=== PATIENT | male | born 2000 | race Caucasian/White ===

== ENCOUNTER 2023-12-05 09:54 | Outpatient (AMB) | payer BC, SELFPAY ==
[2023-12-05 10:01] VITALS: BP 130/78; PULSE 83; O2SAT 98; BMI 29.1
--- NOTE | 2023-12-05 10:01 | MHC.PC.OV ---
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 Dr Malik Last office visit/CPE: > 1 yr Acute issue(s): Groin rash. PMHx: Mononucleosus 2022. SurgHx: [place] teeth FHx: Brother: Asthma. SocHx: Nonsmoker. EtOH: social 2-4 dr a couple times a month MJ Daily. No other drugs PFSH Medical History (Updated 12/05/23 @ 10:31 by Duglas Clark) Chlamydia Surgical History (Updated 12/05/23 @ 10:11 by Dinora Catalan CMA) [place] teeth extracted Family History (Updated 12/05/23 @ 10:18 by Dinora Catalan CMA) Brother Asthma Social History (Updated 12/05/23 @ 10:15 by Dinora Catalan CMA) Household Members: None Both parents involved: No Caregiver staying overnight: No Housing: Apartment Are you a primary customer care representative to a significant other at home: No Do you presently have visiting nurse or other home services: No 75 years or older and lives alone: No Alcohol intake: current Alcohol intake frequency: holidays/special occasions only Alcohol type: other Patient Tobacco Use Status: Never used Tobacco e-Cigarette/Vaping Use: Never Used Use of substances other than those prescribed or required for medical reasons: No Have you been hit, kicked, punched, or otherwise hurt by someone within the past year? 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 1. Little interest or pleasure in doing things: not at all 2. Feeling down, depressed, or hopeless: not at all 3. Trouble falling or staying asleep, or sleeping too much: not at all 4. Feeling tired or having little energy: not at all 5. Poor appetite or overeating: not at all 6. Feeling bad about yourself - or that you are a failure or have let yourself or your family down: not at all 7. Trouble concentrating on things, such as reading the newspaper or watching television: not at all 8. Moving or speaking so slowly that other people could have noticed. Or the opposite - being so fidgety or restless that you have been moving around a lot more than usual: not at all 9. Thoughts that you would be better off or of hurting yourself in some way: not at all Total score: 0 Depression Screening Interpretation: Negative Depression Screening Done: Yes 48026 - PHQ-9 Billing: Yes Source: Developed by Drs. Handy Sherman, Alix Madrid, Bethel Nichols and colleagues, with an educational juan manuel from [employer]. Thrive Questionnaire Date Thrive assessed: 12/05/23 I am a: Patient What is your living situation today?: I have a steady place to live Within the past 12 months, did the food you bought not last and you didn't have the money to get more?: Never true Within the past 12 months, did you worry whether your food would run out before you got money to buy more?: Never true Do you have trouble paying for medicines?: No Do you have trouble getting transportation to medical appointments?: No Do you have trouble paying your heating and electricity bill?: No Do you have trouble taking care of your child, family member or friend?: No Do you have trouble with day-to-day activities such as bathing, preparing meals, shopping, managing finances, etc.?: No Are you currently unemployed and looking for a job?: No Are you interested in more education?: No THRIVE Score: 0 MADYSON-7 AMB Questionnaire MADYSON-7 Date MADYSON - 7 assessed: 12/05/23 Feeling nervous, anxious, or on edge: 0 = Not at all Not being able to stop or control worryin = Not at all Worrying too much about different things: 0 = Not at all Trouble relaxin = Not at all Being so restless that it is hard to sit still: 0 = Not at all Becoming easily annoyed or irritable: 0 = Not at all Feeling afraid as if something awful might happen: 0 = Not at all Total MADYSON-7 score (0-4 normal; 5-9 mild; 10-14 moderate; 15-21 severe): 0 Source: Developed by Drs. Handy Sherman, Alix Madrid, Bethel Nichols and colleagues, with an educational juan manuel from [employer]. MADYSON-7 Assessment Billing MADYSON-7 Assessment Tool: MADYSON-7 Assessment 59297 Review of Systems Const Denies chills, Denies fatigue, Denies fever(s), Denies headache(s) and Denies weakness ENT Denies dizziness and Denies headache(s) Card Denies chest pain, Denies lightheadedness, Denies dyspnea and Denies other (Palpitations) Resp Denies cough, Denies dyspnea, Denies wheezing and Denies other ( shortness of breath) Musc Denies numbness and Denies tingling Skin/Breast Reports rash Neuro Denies dizziness, Denies headache(s), Denies numbness, Denies tingling, Denies paresthesias and Denies weakness Psych Denies anxiety and Denies depression Endo Denies fatigue Aller/Immun Denies wheezing Physical exam (Primary Care) Vital Signs: Last Vital Signs Pulse 83 12/05/23 10:01 BP 130/78 12/05/23 10:01 Pulse Ox 98 12/05/23 10:01 Oxygen Delivery Method Room Air 12/05/23 10:01 BMI result Body Mass Index 29.1 Tobacco/Smoking Status: Tobacco use Status Tobacco use date assessed 12/05/23 12/05/23 10:18 Patient Tobacco Use Status Never used Tobacco 12/05/23 10:18 Tobacco use type 12/05/23 10:18 e-Cigarette/Vaping Use Never Used 12/05/23 10:18 PHQ-9: PHQ-9 Score PHQ-9: Total score 0 12/05/23 10:18 Depression Screening Interpretation: Negative Thrive Assessment: Date of Thrive Assessment Date Thrive assessed 12/05/23 12/05/23 10:18 Const General: no acute distress and well developed Nutritional Appearance: well nourished Orientation/consciousness: patient oriented x3 HENMT Head: Yes normocephalic and Yes atraumatic Eyes General: appearance normal, both eyes and all related structures Pupils: Equal, round and reactive pupils present EOM: EOMs intact bilaterally Resp Effort & Inspection: normal respiratory effort Auscultation: clear to auscultation bilaterally Cardio Rate: regular rate Rhythm: regular rhythm Heart sounds: S1 normal heart sound present, S2 normal heart sound present, no gallops, no murmurs and no rubs Neuro General: patient oriented x3 and gait normal Cranial nerves: Yes Equal, round and reactive pupils present Psych Affect: normal affect Assessment and Plan Assessment & Plan (1) Rash: Code(s): R21 - Rash and other nonspecific skin eruption Plan: Rash?in?bilateral?groin?with?satellite?lesions. ?Small?annular?spots?with?raised?leading?edge?and?mild?scale. Most?likely?yeast/fungal?infection. Start?clotrimazole?cream Avoid?excess?moisture Call?or?return?to?office?if?not?improving?or?if?worsens (2) Laboratory exam ordered as part of routine general medical examination: Code(s): Z00.00 - Encounter for general adult medical examination without abnormal findings Plan: Check?labs Orders: Orders Comprehensive [place]. Panel Fast Today Z00.00 - Encounter for general adult medical examination without abnormal findings TSH reflex Free T4 Today Z00.00 - Encounter for general adult medical examination without abnormal findings UA and rflx microscopic Today Z00.00 - Encounter for general adult medical examination without abnormal findings Syphilis Screen Today Z11.3 - Encounter for screening for infections with a predominantly sexual mode of transmission Lipid Panel Today Z00.00 - Encounter for general adult medical examination without abnormal findings Microalbumin, Random (w Creat) Today I10 - Essential (primary) hypertension CT NG by PCR Today Z11.3 - Encounter for screening for infections with a predominantly sexual mode of transmission HIV Ab/Ag Today Z11.3 - Encounter for screening for infections with a predominantly sexual mode of transmission Hepatitis B,C Profile Today Z11.3 - Encounter for screening for infections with a predominantly sexual mode of transmission Coding Level of Care Code New Pt Level 3 (04078) Diagnoses Rash R21 Laboratory exam ordered as part of routine general medical examination Z00.00 Additional Codes MADYSON-7 Assessment Billing - MADYSON-7 Assessment Tool: MADYSON-7 Assessment [id number] ([id number])
== END 2023-12-05 10:58 | disposition home or self-care (01) ==
PROVIDERS: PCP Family Medicine; Visit Provider Family Medicine
DX: R21 Rash and other nonspecific skin eruption (principal); Z00.00 Encounter for general adult medical examination without abnormal findings
CPT/HCPCS: 99203

== ENCOUNTER 2024-02-10 07:30 | Outpatient (REF) | payer BC, SELFPAY ==
[2024-02-10 11:24] LABS: Appearance Urine Clear; Color Urine Yellow; Glucose Urine UA Negative (Negative); Leukocyte Esterase Urine Negative (Negative); Nitrite Urine Negative (Negative); Urine Blood Negative (Negative); Urine Ketones Negative (Negative); Urine Protein Negative (Neg-Trace)
[2024-02-10 12:01] LABS: Alanine Aminotransferase 22 U/L (0-40); Albumin Level 4.7 g/dL (3.5-5.0); Alkaline Phosphatase 102 U/L (39-117); Anion Gap 12 (12-20); Aspartate Amino Transferase 21 U/L (5-37); Bilirubin Total 0.7 mg/dL (0.0-1.0); Blood Urea Nitrogen 12 mg/dL (9-16); Calcium 9.6 mg/dL (8.4-10.2); Carbon Dioxide 27 mmol/L (22-29); Chloride 107 mmol/L (96-108); Estimated Glomerular Filt Rate > 60; Glucose Fasting 85 mg/dL (60-99); Potassium 3.6 mmol/L (3.3-5.1); Sodium 142 mmol/L (135-145); Total Protein 7.6 g/dL (6.5-8.0)
[2024-02-10 12:16] LABS: HBS Num1 4.09 mIU/mL (0-7.99); HBsAGNum1 0.34 S/CO (0.00-0.99); HIV AB/AG Nonreactive (Nonreactive); HIV Num 1 0.05 S/CO (0.00-0.99); Hepatitis B Core Antibody Nonreactive (Nonreactive); Hepatitis B Surface Antigen Negative (Negative); ~HepC Num1 0.14 S/CO (0.00-0.79); ~Hepatitis B Surface Antibody NONREACTIVE (Nonreactive); ~Hepatitis C Antibody Nonreactive (Nonreactive)
[2024-02-10 12:17] LABS: TSH reflex Free T4 0.94 uIU/mL (0.32-4.0)
[2024-02-10 12:17] LABS: Syphilis Screen Nonreactive (Nonreactive)
[2024-02-10 12:24] LABS: Creatinine Urine 217.23 mg/dL; Microalbum/Creatinine Ratio Ur 3.6 ug/mg cr (<30)
== END 2024-02-10 07:31 | disposition home or self-care (01) ==
LOC: HO.WFDLDS 07:30
PROVIDERS: Visit Provider Family Medicine
DX: Z00.00 Encounter for general adult medical examination without abnormal findings (principal); Z11.3 Encounter for screening for infections with a predominantly sexual mode of transmission; I10 Essential (primary) hypertension
CPT/HCPCS: 36415; 80053; 81003; 82043; 82570; 84443; 86704; 86706; 86780; 86803; 87340; 87389

== ENCOUNTER 2024-02-19 12:52 | Outpatient (AMB) | payer BC, SELFPAY ==
[2024-02-19 13:02] VITALS: BP 112/68; PULSE 97; O2SAT 99; BMI 28.3
--- NOTE | 2024-02-19 13:02 | MHC.PC.OV ---
Vital Signs 02/19/24 13:02 Height 5 ft 10 in Weight 197 lb 4 oz BMI 28.3 BP 112/68 Blood Pressure Location Lt brachial Position Sitting Pulse 97 Pulse Source Pulse Oximeter Pulse Oximetry (%) 99 Oxygen Delivery Method Room Air Intake Visit Reasons: CPE with f/u labs and health maint. 30 mins Intake Note: Patient is here today for his physical today. Allergies amoxicillin [From Augmentin] Allergy (Unknown, Unverified 02/19/24 13:03) Unknown clavulanic acid [From Augmentin] Allergy (Unknown, Unverified 02/19/24 13:03) Unknown Medication List - Last Reconciled 02/19/24 by Michael Oliva MD bupropion HCl 75 mg PO BID 30 days hydroxyzine HCl 25 mg PO QID PRN Tobacco use date assessed: 12/05/23 Dental Screening Dental Screen Date: 12/05/23 HPI CPE with f/u labs and health maint. 30 mins HPI Details 23 y/o male presents for a CPE with f/u labs and health maintenance. Labs were drawn 02/10/24. Reviewed labs with pt. Reviewed labs with pt. Pt reports ongoing anxiety. He has been taking hydroxyzine for relief. [facility] Medical History (Updated 02/19/24 @ 13:39 by Michael Oliva MD) Chlamydia Surgical History (Updated 12/05/23 @ 10:11 by Dinora Catalan CMA) [place] teeth extracted Family History (Updated 12/05/23 @ 10:18 by Dinora Catalan CMA) Brother Asthma Social History (Updated 12/05/23 @ 10:15 by Dinora Catalan CMA) Household Members: None Housing: Apartment Are you a primary day care supervisor to a significant other at home: No Do you presently have visiting nurse or other home services: No Alcohol intake: current Alcohol intake frequency: holidays/special occasions only Alcohol type: other Patient Tobacco Use Status: Never used Tobacco e-Cigarette/Vaping Use: Never Used Special neelam needs: No service: No Current occupational status: employed 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 1. Little interest or pleasure in doing things: not at all 2. Feeling down, depressed, or hopeless: not at all 3. Trouble falling or staying asleep, or sleeping too much: not at all 4. Feeling tired or having little energy: not at all 5. Poor appetite or overeating: not at all 6. Feeling bad about yourself - or that you are a failure or have let yourself or your family down: not at all 7. Trouble concentrating on things, such as reading the newspaper or watching television: not at all 8. Moving or speaking so slowly that other people could have noticed. Or the opposite - being so fidgety or restless that you have been moving around a lot more than usual: not at all 9. Thoughts that you would be better off or of hurting yourself in some way: not at all Total score: 0 Depression Screening Interpretation: Negative Depression Screening Done: Yes 32418 - PHQ-9 Billing: Yes Source: Developed by Drs. Handy Sherman, Alxi Madrid, Bethel Nichols and colleagues, with an educational juan manuel from [employer]. Thrive Questionnaire Date Thrive assessed: 12/05/23 MADYSON-7 AMB Questionnaire MADYSON-7 Date MADYSON - 7 assessed: 02/19/24 Feeling nervous, anxious, or on edge: 1 = Several days Not being able to stop or control worryin = Several days Worrying too much about different things: 1 = Several days Trouble relaxin = Not at all Being so restless that it is hard to sit still: 0 = Not at all Becoming easily annoyed or irritable: 0 = Not at all Feeling afraid as if something awful might happen: 0 = Not at all Total MADYSON-7 score (0-4 normal; 5-9 mild; 10-14 moderate; 15-21 severe): 3 Source: Developed by Drs. Handy Sherman, Alix Madrid, Bethel Nichols and colleagues, with an educational juan manuel from [employer]. MADYSON-7 Assessment Billing MADYSON-7 Assessment Tool: MADYSON-7 Assessment 16610 Review of Systems Const Denies chills, Denies fatigue, Denies fever(s), Denies headache(s) and Denies weakness Eyes Denies change in vision ENT Denies dizziness, Denies headache(s), Denies hearing loss, Denies nasal congestion, Denies sinus pain, Denies sinus pressure and Denies sore throat Card Denies chest pain, Denies lightheadedness, Denies dyspnea and Denies other (palpitations) Resp Denies cough, Denies dyspnea and Denies wheezing GI Denies abdominal pain, Denies melena, Denies hematochezia, Denies change in bowel habits, Denies dyspepsia and Denies nausea Denies hematuria and Denies dysuria Musc Denies abnormal gait, Denies myalgias, Denies arthralgias, Denies numbness and Denies tingling Skin/Breast Denies rash, Denies unusual bruising and Denies wounds Neuro Denies abnormal gait, Denies dizziness, Denies headache(s), Denies memory loss, Denies numbness, Denies Sensory deficit (Neuro), Denies tingling and Denies weakness Psych Reports anxiety, Denies depression and Denies memory loss Endo Denies cold intolerance, Denies fatigue, Denies heat intolerance, Denies polydipsia and Denies polyuria [place]/Lymph Denies easy bleeding and Denies easy bruising Aller/Immun Denies wheezing Physical exam (Primary Care) Vital Signs: Last Vital Signs Pulse 97 02/19/24 13:02 BP 112/68 02/19/24 13:02 Pulse Ox 99 02/19/24 13:02 Oxygen Delivery Method Room Air 02/19/24 13:02 BMI result Body Mass Index 28.3 Tobacco/Smoking Status: Tobacco use Status Tobacco use date assessed 12/05/23 02/19/24 13:03 Patient Tobacco Use Status Never used Tobacco 02/19/24 13:03 Tobacco use type 12/05/23 10:39 e-Cigarette/Vaping Use Never Used 02/19/24 13:03 PHQ-9: PHQ-9 Score PHQ-9: Total score 0 02/19/24 13:22 Depression Screening Interpretation: Negative Thrive Assessment: Date of Thrive Assessment Date Thrive assessed 12/05/23 02/19/24 13:03 Const General: no acute distress, well developed, alert and awake Nutritional Appearance: well nourished Orientation/consciousness: patient oriented x3 HENMT Head: Yes normocephalic and Yes atraumatic Ears: hearing grossly normal bilaterally and TM's normal bilaterally General nose exam: Normal external nose present and Normal nares present Mouth: Normal oral and palatal mucosa present and moist mucous membranes Teeth and gingiva: dentition normal Throat: Yes posterior oropharynx normal Eyes General: appearance normal, both eyes and all related structures Pupils: Equal, round and reactive pupils present and Pupil accommodation reflex normal EOM: EOMs intact bilaterally Neck Neck: Yes normal visual inspection, Yes no lymphadenopathy and Yes trachea midline Thyroid: Thyroid normal Carotids: no bruits Lymphatic: no lymphadenopathy noted Chest Chest palpation & inspection: normal inspection of the chest Resp Effort & Inspection: normal respiratory effort Auscultation: clear to auscultation bilaterally Cardio Rate: regular rate Rhythm: regular rhythm Heart sounds: S1 normal heart sound present, S2 normal heart sound present, no gallops, no murmurs and no rubs Bruits: no abdominal aortic bruits and no carotid bruits GI Palpation (GI): No Abdominal aortic bruit present, Soft to palpation, nontender, No hepatosplenomegaly present and No Rebound tenderness present Auscultation: normal bowel sounds General: Yes no CVA tenderness Back/Spine/Pelvis Back: no CVA tenderness Cervical Spine: cervical ROM normal and No Cervical spine tenderness Thoracic/Lumbar Spine: thoraco-lumbar ROM normal, No pain with thoraco-lumbar ROM, No thoracic spinal tenderness and No lumbar spinal tenderness Skin Lesions: no lesions Rashes: no rashes Trauma: no lacerations or abrasions Wounds: no wounds Nails: normal Neuro General: patient oriented x3 Cranial nerves: Yes Equal, round and reactive pupils present Cognition (Neuro): normal cognition Gait exam (Neuro): Normal gait present Motor exam (neuro): 5/5 motor strength present throughout Sensory Exam: No Sensory deficit (Neuro) Deep tendon reflexes (DTR's): Right patellar reflex intensity grade: 2+ and Left patellar reflex intensity grade: 2+ Extrem General: Yes normal to inspection and No edema Psych Appearance: grossly normal Affect: normal affect Attitude: cooperative Thought process: Normal thought process present Assessment and Plan Assessment & Plan (1) Adult general medical exam: Code(s): Z00.00 - Encounter for general adult medical examination without abnormal findings Plan: 23-year-old?male?presents?for?complete?physical?exam (2) Anxiety: Code(s): F41.9 - Anxiety disorder, unspecified Plan: Recently,?recurrent?episodes?of?anxiety Continue?hydroxyzine?for?severe?symptoms. Will?trial?bupropion (3) Tachycardia: Code(s): R00.0 - Tachycardia, unspecified Plan: Tachycardia?at?ED, likely?secondary?to?anxiety Also?had?hypokalemia EKG?today: ?Normal?sinus?rhythm,?normal?axis,?normal?intervals,?no?hypertrophy,?no?ST-T-wave?changes.??Normal?EKG. Maintain?good?hydration?and?can?use?an?OTC?potassium?supplement.??Checking?labs. Treat?underlying?anxiety (4) Hypokalemia: Code(s): E87.6 - Hypokalemia Plan: Check?labs Hydrate?well?and?can?use?OTC?potassium?supplement (5) Screening for STD (sexually transmitted disease): Code(s): Z11.3 - Encounter for screening for infections with a predominantly sexual mode of transmission Plan: STD/STI?testing?is?negative Orders: Orders Lipid Panel Today Z00.00 - Encounter for general adult medical examination without abnormal findings LDL Cholesterol Direct Today Z00.00 - Encounter for general adult medical examination without abnormal findings AMB EKG-In Office Today R00.0 - Tachycardia, unspecified Comprehensive [place]. Panel Fast Today E87.6 - Hypokalemia, Z00.00 - Encounter for general adult medical examination without abnormal findings Medications: New bupropion HCl 75 mg PO BID 30 days 60 tabs 1RF Z00.00 - Encounter for general adult medical examination without abnormal findings Coding Level of Care Code Est Pt Level 3 (30732) Est Pt Prev Care 18-39y(99252) Diagnoses Adult general medical exam Z00.00 Anxiety F41.9 Tachycardia R00.0 Hypokalemia E87.6 Screening for STD (sexually transmitted disease) Z11.3 Additional Codes MADYSON-7 Assessment Billing - MADYSON-7 Assessment Tool: MADYSON-7 Assessment 56075 ([id number])
== END 2024-02-19 13:53 | disposition home or self-care (01) ==
PROVIDERS: PCP Family Medicine; Visit Provider Family Medicine
DX: Z00.00 Encounter for general adult medical examination without abnormal findings (principal); F41.9 Anxiety disorder, unspecified; R00.0 Tachycardia, unspecified; E87.6 Hypokalemia; Z11.3 Encounter for screening for infections with a predominantly sexual mode of transmission
CPT/HCPCS: 93000; 99213; 99395

== ENCOUNTER 2024-02-19 13:54 | Outpatient (REF) | payer BC, SELFPAY | END 2024-02-19 13:55 | disposition home or self-care (01) | LOC: HO.WFDLDS 13:54 | PROVIDERS: Visit Provider Family Medicine | DX: Z53.8 Procedure and treatment not carried out for other reasons (principal) | CPT/HCPCS: 36415 ==

== ENCOUNTER 2024-03-12 09:20 | Outpatient (AMB) | payer BC, SELFPAY ==
--- NOTE | 2024-03-12 09:27 | A.OFFPC_ITS ---
Vital Signs 03/12/24 09:37 Height 5 ft 10 in Weight 195 lb 6 oz BMI 28.0 BP 106/74 Blood Pressure Location Rt brachial Position Sitting Respiration 18 Pulse 80 Pulse Source Pulse Oximeter Temp 97.9 F Temp Source Oral Pulse Oximetry (%) 98 Oxygen Delivery Method Room Air Intake Visit Reasons: blurred vision/crosseyed/ shakiness Intake Note: per patient anxiety medication is giving him blurred vision crossed eye and shakiness in the morning. Allergies amoxicillin [From Augmentin] Allergy (Unknown, Verified 03/12/24 09:37) Unknown clavulanic acid [From Augmentin] Allergy (Unknown, Verified 03/12/24 09:37) Unknown Medication List - Last Reconciled 03/12/24 by Michael Oliva MD citalopram 20 mg PO DAILY 30 days hydroxyzine HCl 25 mg PO QID PRN Tobacco use date assessed: 12/05/23 Dental Screening Dental Screen Date: 12/05/23 HPI blurred vision/crosseyed/ shakiness HPI Details Pt presents to f/u anxiety. He reports anxiety meds has been causing him double vision/shakiness in the morning. Had started him on bupropion as he had been having difficulty with focus. [facility] Medical History (Updated 03/12/24 @ 10:38 by Duglas Clark) Chlamydia Surgical History (Updated 12/05/23 @ 10:11 by Dinora Catalan CMA) [place] teeth extracted Family History (Updated 12/05/23 @ 10:18 by Dinora Catalan CMA) Brother Asthma Social History (Updated 12/05/23 @ 10:15 by Dinora Catalan CMA) Household Members: None Housing: Apartment Are you a primary acute care assistant to a significant other at home: No Do you presently have visiting nurse or other home services: No Alcohol intake: current Alcohol intake frequency: holidays/special occasions only Alcohol type: other Patient Tobacco Use Status: Never used Tobacco e-Cigarette/Vaping Use: Never Used Special neelam needs: No service: No Current occupational status: employed 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 Handy Sherman, Alix Madrid, Bethel Nichols and colleagues, with an educational juan manuel from [employer]. Review of Systems Const Denies chills, Denies fatigue, Denies fever(s), Denies headache(s) and Denies weakness ENT Denies dizziness and Denies headache(s) Card Denies dyspnea Resp Denies cough, Denies dyspnea, Denies wheezing and Denies other (shortness of breath) Musc Denies numbness and Denies tingling Neuro Denies dizziness, Denies headache(s), Denies numbness, Denies tingling and Denies weakness Psych Reports anxiety and Denies depression Endo Denies fatigue Aller/Immun Denies wheezing Physical exam (Primary Care) Vital Signs: Last Vital Signs Temp 97.9 F 03/12/24 09:37 Pulse 80 03/12/24 09:37 Resp 18 03/12/24 09:37 BP 106/74 03/12/24 09:37 Pulse Ox 98 03/12/24 09:37 Oxygen Delivery Method Room Air 03/12/24 09:37 BMI result Body Mass Index 28.0 Tobacco/Smoking Status: Tobacco use Status Tobacco use date assessed 12/05/23 03/12/24 09:28 Patient Tobacco Use Status Never used Tobacco 03/12/24 09:28 Tobacco use type 12/05/23 10:39 e-Cigarette/Vaping Use Never Used 03/12/24 09:28 Thrive Assessment: Date of Thrive Assessment Date Thrive assessed 12/05/23 03/12/24 09:28 Const General: well developed; No acute distress Nutritional Appearance: well nourished Orientation/consciousness: patient oriented x3 [facility]: Yes normocephalic and Yes atraumatic Eyes Other: R eye weakness General: appearance normal, both eyes and all related structures Pupils: Equal, round and reactive pupils present EOM: EOMs intact bilaterally Resp Effort & Inspection: normal respiratory effort Neuro General: patient oriented x3 and gait normal Cranial nerves: Yes Equal, round and reactive pupils present Psych Affect: normal affect Assessment and Plan Assessment & Plan (1) Anxiety: Code(s): F41.9 - Anxiety disorder, unspecified Plan: Patient?has?been?on?bupropion?but?thinks?this?is?causing?vision?changes- see?below Will?stop?bupropion?and?try?citalopram Continue?hydroxyzine?for?worsened?anxiety?symptom (2) Double vision: Code(s): H53.2 - Diplopia Plan: Some?bouts?of?diplopia?and?patient?does?seem?to?have?some?right?eye?muscle?weakn ess?but?is?otherwise?neurologically?intact Referred?him?back?to?his?eye?doctor,??Amaris?Piper in?[place] Advised?him?if?he?has?another?bout?of?worsened?vision/diplopia?he?should?get?jocelin cked?out?at?the?emergency?department Patient?has?had?electrolyte?imbalances?in?the?past?which?could?cause?muscle?weak ness Checking?labs?today (3) Vision changes: Code(s): H53.9 - Unspecified visual disturbance Plan: As?above Orders: Referrals Ophthalmology Referral H53.2 - Diplopia, H53.9 - Unspecified visual disturbance Medications: New citalopram 20 mg PO DAILY 30 days 30 tabs 2RF Discontinued bupropion HCl Discontinued Reason: Doctor's Order 75 mg PO BID 30 days 60 tabs 1RF Z00.00 - Encounter for general adult medical examination without abnormal findings Coding Level of Care Code Est Pt Level 3 (26627) Diagnoses Anxiety F41.9 Double vision H53.2 Vision changes H53.9
[2024-03-12 09:37] VITALS: BP 106/74; PULSE 80; RESP 18; TEMP 36.6; O2SAT 98; BMI 28.0
== END 2024-03-12 10:49 | disposition home or self-care (01) ==
PROVIDERS: PCP Family Medicine; Visit Provider Family Medicine
DX: F41.9 Anxiety disorder, unspecified (principal); H53.2 Diplopia; H53.9 Unspecified visual disturbance
CPT/HCPCS: 99213

== ENCOUNTER 2024-03-12 10:43 | Outpatient (REF) | payer BC, SELFPAY ==
[2024-03-12 14:23] LABS: Alanine Aminotransferase 21 U/L (0-40); Albumin Level 5.1 g/dL (3.5-5.0); Alkaline Phosphatase 101 U/L (39-117); Anion Gap 12 (12-20); Aspartate Amino Transferase 23 U/L (5-37); Bilirubin Total 0.9 mg/dL (0.0-1.0); Blood Urea Nitrogen 10 mg/dL (9-16); Carbon Dioxide 28 mmol/L (22-29); Chloride 105 mmol/L (96-108); Cholesterol 176 mg/dL (<200); Estimated Glomerular Filt Rate > 60; Glucose Fasting 81 mg/dL (60-99); HDL Cholesterol 43 mg/dL (>40); LDL Cholesterol Calculated 121 mg/dL (<100); Potassium 3.9 mmol/L (3.3-5.1); Sodium 141 mmol/L (135-145); Triglycerides 62 mg/dL (<150)
[2024-03-13 10:59] LABS: LDL Cholesterol Direct 124 mg/dL (<100)
== END 2024-03-12 10:44 | disposition home or self-care (01) ==
LOC: HO.WFDLDS 10:43
PROVIDERS: Visit Provider Family Medicine
DX: Z00.00 Encounter for general adult medical examination without abnormal findings (principal); E87.6 Hypokalemia
CPT/HCPCS: 36415; 80053; 80061; 83721

== ENCOUNTER 2024-03-23 15:22 | Outpatient (AMB) | payer BC, SELFPAY ==
--- NOTE | 2024-03-23 15:27 | A.OFFPC_ITS ---
Vital Signs 03/23/24 15:33 Height 5 ft 10 in Weight 196 lb 4 oz BMI 28.2 BP 120/80 Blood Pressure Location Rt brachial Position Sitting Respiration 18 Pulse 74 Pulse Source Pulse Oximeter Temp 97.8 F Temp Source Tympanic Pulse Oximetry (%) 98 Oxygen Delivery Method Room Air Intake Visit Reasons: f/u anxiety Intake Note: anxiety f/u Allergies amoxicillin [From Augmentin] Allergy (Unknown, Verified 03/23/24 15:27) Unknown clavulanic acid [From Augmentin] Allergy (Unknown, Verified 03/23/24 15:27) Unknown Tobacco use date assessed: 12/05/23 Dental Screening Dental Screen Date: 12/05/23 HPI f/u anxiety HPI Details 23 y/o male presents to f/u labs, anxiet y. F/u change from bupropion to citalopram. Labs drawn 03/12/24. Reviewed labs with pt. Triglycerides 62. TC 176. LDL 124. HDL 43. Pt notes he is still on citalopram 10mg and has not worked his way up yet. He notes he is slowly getting used to the 10mg. HPI Comments History of Present Illness Details Documentation assistance for Michael Oliva MD, was provided by Duglas Clark, Home Visitor on 03/23/2024 at 3:42 PM EST. I, Dr. Oliva, have read, observed, and verified documentation. [facility] Medical History (Updated 03/23/24 @ 15:42 by Duglas Clark) Chlamydia Surgical History (Updated 12/05/23 @ 10:11 by Dinora Catalan CMA) [place] teeth extracted Family History (Updated 12/05/23 @ 10:18 by Dinora Catalan CMA) Brother Asthma Social History (Updated 12/05/23 @ 10:15 by Dinora Catalan CMA) Household Members: None Both parents involved: No Caregiver staying overnight: No Housing: Apartment Are you a primary patient care to a significant other at home: No Do you presently have visiting nurse or other home services: No 75 years or older and lives alone: No Alcohol intake: current Alcohol intake frequency: holidays/special occasions only Alcohol type: other Patient Tobacco Use Status: Never used Tobacco e-Cigarette/Vaping Use: Never Used Special neelam needs: No service: No Current occupational status: employed 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 Handy Sherman, Alix Madrid, Bethel Nichols and colleagues, with an educational juan manuel from [employer]. Review of Systems Const Denies chills, Denies fatigue, Denies fever(s), Denies headache(s) and Denies weakness ENT Denies dizziness and Denies headache(s) Card Denies dyspnea Resp Denies cough, Denies dyspnea, Denies wheezing and Denies other (shortness of breath) Musc Denies numbness and Denies tingling Neuro Denies dizziness, Denies headache(s), Denies numbness, Denies tingling and Denies weakness Psych Reports anxiety and Denies depression Endo Denies fatigue Aller/Immun Denies wheezing Physical exam (Primary Care) Vital Signs: Last Vital Signs Temp 97.8 F 03/23/24 15:33 Pulse 74 03/23/24 15:33 Resp 18 03/23/24 15:33 BP 120/80 03/23/24 15:33 Pulse Ox 98 03/23/24 15:33 Oxygen Delivery Method Room Air 03/23/24 15:33 BMI result Body Mass Index 28.2 Tobacco/Smoking Status: Tobacco use Status Tobacco use date assessed 12/05/23 03/23/24 15:30 Patient Tobacco Use Status Never used Tobacco 03/23/24 15:30 Tobacco use type 12/05/23 10:39 e-Cigarette/Vaping Use Never Used 03/23/24 15:30 Thrive Assessment: Date of Thrive Assessment Date Thrive assessed 12/05/23 03/23/24 15:30 Const General: well developed; No acute distress Nutritional Appearance: well nourished Orientation/consciousness: patient oriented x3 HENMT Head: Yes normocephalic and Yes atraumatic Eyes General: appearance normal, both eyes and all related structures Pupils: Equal, round and reactive pupils present EOM: EOMs intact bilaterally Resp Effort & Inspection: normal respiratory effort Auscultation: clear to auscultation bilaterally Cardio Rate: regular rate Rhythm: regular rhythm Heart sounds: S1 normal heart sound present, S2 normal heart sound present, no gallops, no murmurs and no rubs Neuro General: patient oriented x3 and gait normal Cranial nerves: Yes Equal, round and reactive pupils present Psych Affect: normal affect Assessment and Plan Assessment & Plan (1) Anxiety: Code(s): F41.9 - Anxiety disorder, unspecified Plan: Patient?is?beginning?to?tolerate?citalopram?10?mg?daily.??He ?has?not?titrated?up?to?20?mg?yet. No?longer?getting?double?vision?which?he?attributed?to?bupropion?and?this?has?be en?stopped Encouraged?him?to?try?to?slowly?titrate?citalopram?up?to?20?mg?daily Will?follow-up?in?a?few?months (2) Elevated LDL cholesterol level: Code(s): E78.00 - Pure hypercholesterolemia, unspecified Plan: LDL?cholesterol?is?a?little?high Work?at?a?diet?lower?in?saturated?fats?and?cholesterol We?can?follow-up?on?this?at?a?subsequent?visit (3) Double vision: Code(s): H53.2 - Diplopia Plan: This?seems?to?have?resolved.??Patient?attributed?double?vision?to?ta padmaja?bupropion. Unclear?with?the?cause?is?but?I?had?referred?him?to?Ophthalmology?and?he?has?not ?been?scheduled?for?an?appointment.??I?have?asked?the?office?to?check?on?the?sta tus?of?this?referral. Coding Level of Care Code Est Pt Level 4 (14536) Diagnoses Anxiety F41.9 Elevated LDL cholesterol level E78.00 Double vision H53.2
[2024-03-23 15:33] VITALS: BP 120/80; PULSE 74; RESP 18; TEMP 36.6; O2SAT 98; BMI 28.2
== END 2024-03-23 16:00 | disposition home or self-care (01) ==
PROVIDERS: PCP Family Medicine; Visit Provider Family Medicine
DX: F41.9 Anxiety disorder, unspecified (principal); E78.00 Pure hypercholesterolemia, unspecified; H53.2 Diplopia
CPT/HCPCS: 99214

== ENCOUNTER 2024-06-08 07:47 | Outpatient (REF) | payer BC, SELFPAY ==
[2024-06-08 11:54] LABS: Cholesterol 238 mg/dL (<200); HDL Cholesterol 64 mg/dL (>40); LDL Cholesterol Calculated 152 mg/dL (<100); Triglycerides 114 mg/dL (<150)
== END 2024-06-08 07:48 | disposition home or self-care (01) ==
LOC: HO.WFDLDS 07:47
PROVIDERS: Visit Provider Family Medicine
DX: Z00.00 Encounter for general adult medical examination without abnormal findings (principal)
CPT/HCPCS: 36415; 80061

== ENCOUNTER 2024-06-22 15:26 | Outpatient (AMB) | payer BC, SELFPAY ==
--- NOTE | 2024-06-22 15:28 | A.OFFPC_ITS ---
Vital Signs 06/22/24 15:33 Height 5 ft 10 in Weight 212 lb 4 oz BMI 30.5 BP 108/76 Blood Pressure Location Rt brachial Position Sitting Respiration 14 Pulse 76 Pulse Source Pulse Oximeter Temp 97.4 F Temp Source Oral Pulse Oximetry (%) 98 Oxygen Delivery Method Room Air Intake Visit Reasons: f/u anxiety, lipids Intake Note: f/u anxiety and ;ab review Allergies amoxicillin [From Augmentin] Allergy (Unknown, Verified 06/22/24 15:32) Unknown clavulanic acid [From Augmentin] Allergy (Unknown, Verified 06/22/24 15:32) Unknown Tobacco use date assessed: 12/05/23 Dental Screening Dental Screen Date: 12/05/23 HPI f/u anxiety, lipids HPI Details 24 y/o male presents to f/u anxiety and lipids. Labs drawn 06/08/24. Reviewed labs with pt. Triglycerides 114. TC 238. LDL worsened from 121 to 152. HDL 64. Weight increased since last office visit - 196 lbs to 212 lbs. PHQ-9 0, MADYSON-7 1 today. Notes medication regimen has been working for him. HPI Comments History of Present Illness Details Documentation assistance for Michael Oliva MD, was provided by Duglas Clark,? [employer] on 06/22/2024 at 3:44 PM EST. I, Dr. Oliva, have read, observed, and verified documentation. [facility] Medical History (Updated 03/23/24 @ 15:42 by Duglas Clark) Chlamydia Surgical History (Updated 12/05/23 @ 10:11 by Dinora Catalan [facility]) [place] teeth extracted Family History (Updated 12/05/23 @ 10:18 by Dinora Catalan CMA) Brother Asthma Social History (Updated 12/05/23 @ 10:15 by Dinora Catalan CMA) Household Members: None Both parents involved: No Caregiver staying overnight: No Housing: Apartment Are you a primary animal care service worker to a significant other at home: No Do you presently have visiting nurse or other home services: No 75 years or older and lives alone: No Alcohol intake: current Alcohol intake frequency: holidays/special occasions only Alcohol type: other Patient Tobacco Use Status: Never used Tobacco e-Cigarette/Vaping Use: Never Used Special neelam needs: No service: No Current occupational status: employed 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 1. Little interest or pleasure in doing things: not at all 2. Feeling down, depressed, or hopeless: not at all 3. Trouble falling or staying asleep, or sleeping too much: not at all 4. Feeling tired or having little energy: not at all 5. Poor appetite or overeating: not at all 6. Feeling bad about yourself - or that you are a failure or have let yourself or your family down: not at all 7. Trouble concentrating on things, such as reading the newspaper or watching television: not at all 8. Moving or speaking so slowly that other people could have noticed. Or the opposite - being so fidgety or restless that you have been moving around a lot more than usual: not at all 9. Thoughts that you would be better off or of hurting yourself in some way: not at all Total score: 0 Depression Screening Interpretation: Negative Depression Screening Done: Yes 14780 - PHQ-9 Billing: Yes Source: Developed by Drs. Handy Sherman, Alix Madrid, Bethel Nichols and colleagues, with an educational juan manuel from [employer]. Thrive Questionnaire Date Thrive assessed: 06/22/24 I am a: Patient What is your living situation today?: I have a steady place to live Within the past 12 months, did the food you bought not last and you didn't have the money to get more?: Never true Within the past 12 months, did you worry whether your food would run out before you got money to buy more?: Never true Do you have trouble paying for medicines?: No Do you have trouble getting transportation to medical appointments?: No Do you have trouble paying your heating and electricity bill?: No Do you have trouble taking care of your child, family member or friend?: No Do you have trouble with day-to-day activities such as bathing, preparing meals, shopping, managing finances, etc.?: No Are you currently unemployed and looking for a job?: No Are you interested in more education?: No Please select the resources that you would like help with: None Currently or been in a relationship where the following occur: No concerns reported THRIVE Score: 0 AUDIT C Alcohol Use Questionnaire (AUDIT-C) 1. How often do you have a drink containing alcohol?: 2-4 times a month 2. How many drinks containing alcohol do you have on a typical day when you are drinking?: 3 or 4 3. How often do you have six or more drinks on one occasion?: Monthly Total Score: 5 MADYSON-7 AMB Questionnaire MADYSON-7 Date MADYSON - 7 assessed: 06/22/24 Feeling nervous, anxious, or on edge: 1 = Several days Not being able to stop or control worryin = Not at all Worrying too much about different things: 0 = Not at all Trouble relaxin = Not at all Being so restless that it is hard to sit still: 0 = Not at all Becoming easily annoyed or irritable: 0 = Not at all Feeling afraid as if something awful might happen: 0 = Not at all Total MADYSON-7 score (0-4 normal; 5-9 mild; 10-14 moderate; 15-21 severe): 1 Source: Developed by Drs. Handy Sherman, Alix Madrid, Bethel Nichols and colleagues, with an educational juan manuel from [employer]. MADYSON-7 Assessment Billing MADYSON-7 Assessment Tool: MADYSON-7 Assessment 54425 Review of Systems Const Denies chills, Denies fatigue, Denies fever(s), Denies headache(s) and Denies weakness ENT Denies dizziness and Denies headache(s) Card Denies dyspnea Resp Denies cough, Denies dyspnea, Denies wheezing and Denies other (shortness of breath) Musc Denies numbness and Denies tingling Neuro Denies dizziness, Denies headache(s), Denies numbness, Denies tingling and Denies weakness Psych Denies anxiety and Denies depression Endo Denies fatigue Aller/Immun Denies wheezing Physical exam (Primary Care) Vital Signs: Last Vital Signs Temp 97.4 F 06/22/24 15:33 Pulse 76 06/22/24 15:33 Resp 14 06/22/24 15:33 BP 108/76 06/22/24 15:33 Pulse Ox 98 06/22/24 15:33 Oxygen Delivery Method Room Air 06/22/24 15:33 BMI result Body Mass Index 30.5 Tobacco/Smoking Status: Tobacco use Status Tobacco use date assessed 12/05/23 06/22/24 15:31 Patient Tobacco Use Status Never used Tobacco 06/22/24 15:31 Tobacco use type 12/05/23 10:39 e-Cigarette/Vaping Use Never Used 06/22/24 15:31 PHQ-9: PHQ-9 Score PHQ-9: Total score 0 06/22/24 15:40 Depression Screening Interpretation: Negative Thrive Assessment: Date of Thrive Assessment Date Thrive assessed 06/22/24 06/22/24 15:38 Currently or been in a relationship where the following occur: No concerns reported Const General: well developed; No acute distress Nutritional Appearance: well nourished Orientation/consciousness: patient oriented x3 HENMT Head: Yes normocephalic and Yes atraumatic Eyes General: appearance normal, both eyes and all related structures Pupils: Equal, round and reactive pupils present EOM: EOMs intact bilaterally Resp Effort & Inspection: normal respiratory effort Auscultation: clear to auscultation bilaterally Cardio Rate: regular rate Rhythm: regular rhythm Heart sounds: S1 normal heart sound present, S2 normal heart sound present, no gallops, no murmurs and no rubs Neuro General: patient oriented x3 and gait normal Cranial nerves: Yes Equal, round and reactive pupils present Psych Affect: normal affect Coding Level of Care Code Est Pt Level 3 (86380) Diagnoses Anxiety F41.9 Elevated LDL cholesterol level E78.00 Additional Codes MADYSON-7 Assessment Billing - MADYSON-7 Assessment Tool: MADYSON-7 Assessment 07225 ([id number]) PHQ-9 - 25213 - PHQ-9 Billing: Yes ([id number]) Assessment & Plan Assessment & Plan (1) Anxiety: Code(s): F41.9 - Anxiety disorder, unspecified Category: Medical Plan: Patient?is?doing?very?well?on?citalopram?20?mg?daily Appears?stable Continue?citalopram?as?prescribed Briefly?discussed?therapist?but?patient?declines?this?for?now Also?encouraged?exercise?for?his?mental?health.??Patient?says?that?he?has?been?a pprehensive?do?this.??He?will?try?starting?very?gradually. (2) Elevated LDL cholesterol level: Code(s): E78.00 - Pure hypercholesterolemia, unspecified Category: Medical Plan: LDL?cholesterol?over?150 Encouraged?a?diet?lower?in?saturated?fats?and?cholesterol?at?last?Check. He?will?try?once?again?for?the?next?3?months?to?reduce?saturated?fat s?and?cholesterol?in?diet,?work?at?weight?loss?and?I?encouraged?exercise We?did?discuss?that?if?lipids?are?still?high?at?follow- up,?we?should?use?a?medication.??Patient?understands Orders: Orders Lipid Panel Today E78.00 - Pure hypercholesterolemia, unspecified, Z00.00 - Encounter for general adult medical examination without abnormal findings Comprehensive [place]. Panel Fast Today E78.00 - Pure hypercholesterolemia, unspecified, Z00.00 - Encounter for general adult medical examination without abnormal findings Medications: Changed From citalopram 20 mg PO DAILY 30 days 30 tabs 2RF To citalopram 20 mg PO DAILY 90 days 90 tabs 3RF
[2024-06-22 15:33] VITALS: BP 108/76; PULSE 76; RESP 14; TEMP 36.3; O2SAT 98; BMI 30.5
== END 2024-06-22 15:51 | disposition home or self-care (01) ==
PROVIDERS: PCP Family Medicine; Visit Provider Family Medicine
DX: F41.9 Anxiety disorder, unspecified (principal); E78.00 Pure hypercholesterolemia, unspecified

== ENCOUNTER → 2024-06-22 15:26 | Outpatient (BNVA) | payer BC, SELFPAY | PROVIDERS: PCP Family Medicine; Visit Provider Family Medicine | DX: F41.9 Anxiety disorder, unspecified (principal); E78.00 Pure hypercholesterolemia, unspecified; Z79.899 Other long term (current) drug therapy | CPT/HCPCS: 96127 ==

== ENCOUNTER 2024-10-27 07:28 | Outpatient (REF) | payer BC, SELFPAY ==
[2024-10-27 11:24] LABS: Alanine Aminotransferase 32 U/L (0-40); Albumin Level 4.6 g/dL (3.5-5.0); Alkaline Phosphatase 99 U/L (39-117); Anion Gap 12 (12-20); Aspartate Amino Transferase 49 U/L (5-37); Bilirubin Total 0.9 mg/dL (0.0-1.0); Blood Urea Nitrogen 16 mg/dL (9-16); Calcium 9.6 mg/dL (8.4-10.2); Carbon Dioxide 30 mmol/L (22-29); Chloride 102 mmol/L (96-108); Cholesterol 230 mg/dL (<200); Estimated Glomerular Filt Rate > 60; Glucose Fasting 84 mg/dL (60-99); HDL Cholesterol 51 mg/dL (>40); LDL Cholesterol Calculated 161 mg/dL (<100); Potassium 4.3 mmol/L (3.3-5.1); Sodium 140 mmol/L (135-145); Total Protein 7.8 g/dL (6.5-8.0); Triglycerides 90 mg/dL (<150)
== END 2024-10-27 07:29 | disposition home or self-care (01) ==
LOC: HO.WFDLDS 07:28
PROVIDERS: Visit Provider Family Medicine
DX: Z00.00 Encounter for general adult medical examination without abnormal findings (principal); E78.00 Pure hypercholesterolemia, unspecified
CPT/HCPCS: 36415; 80053; 80061

== ENCOUNTER 2024-11-03 14:22 | Outpatient (AMB) | payer BC, SELFPAY ==
--- NOTE | 2024-11-03 14:31 | MHC.PC.OV ---
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 Allergies amoxicillin [From Augmentin] Allergy (Unknown, Verified 11/03/24 14:38) Unknown clavulanic acid [From Augmentin] Allergy (Unknown, Verified 11/03/24 14:38) Unknown Medication List - Last Reconciled 11/03/24 by Michael Oliva MD citalopram 20 mg PO DAILY 90 days hydroxyzine HCl 25 mg PO QID PRN Tobacco use date assessed: 12/05/23 Dental Screening Dental Screen Date: 12/05/23 HPI f/u HLD HPI Details Patient?presents?to?follow-up?hyperlipidemia LDL?cholesterol?has?risen?from?150-161 Patient?declines?medication.??Says?he?wants?to?do?it?through?diet?exercise?and?weight?loss Patient?also?has?scapular?pain?on?the?left.??He?notes?that?rolling?exercises?at?gym?are?uncomfortable?and?he?is?weaker?on?the?left?side?with?this?muscle. [facility] Medical History (Updated 11/03/24 @ 15:00 by Michael Oliva MD) Chlamydia Surgical History (Updated 12/05/23 @ 10:11 by Dinora Catalan CMA) [place] teeth extracted Family History (Updated 12/05/23 @ 10:18 by Dinora Catalan CMA) Brother Asthma Social History (Updated 12/05/23 @ 10:15 by Dinora Catalan CMA) Household Members: None Both parents involved: No Caregiver staying overnight: No Housing: Apartment Are you a primary spiritual care coordinator to a significant other at home: No Do you presently have visiting nurse or other home services: No 75 years or older and lives alone: No Alcohol intake: current Alcohol intake frequency: holidays/special occasions only Alcohol type: other Patient Tobacco Use Status: Never used Tobacco e-Cigarette/Vaping Use: Never Used Special neelam needs: No service: No Current occupational status: employed 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 1. Little interest or pleasure in doing things: not at all 2. Feeling down, depressed, or hopeless: not at all 3. Trouble falling or staying asleep, or sleeping too much: not at all 4. Feeling tired or having little energy: not at all 5. Poor appetite or overeating: not at all 6. Feeling bad about yourself - or that you are a failure or have let yourself or your family down: not at all 7. Trouble concentrating on things, such as reading the newspaper or watching television: not at all 8. Moving or speaking so slowly that other people could have noticed. Or the opposite - being so fidgety or restless that you have been moving around a lot more than usual: not at all 9. Thoughts that you would be better off or of hurting yourself in some way: not at all Total score: 0 Depression Screening Interpretation: Negative Depression Screening Done: Yes 94702 - PHQ-9 Billing: Yes Source: Developed by Drs. Handy Sherman, Alix Madrid, Bethel Nichols and colleagues, with an educational juan manuel from [employer]. Thrive Questionnaire Date Thrive assessed: 11/03/24 I am a: Patient What is your living situation today?: I have a steady place to live Within the past 12 months, did the food you bought not last and you didn't have the money to get more?: Never true Within the past 12 months, did you worry whether your food would run out before you got money to buy more?: Never true Do you have trouble paying for medicines?: No Do you have trouble getting transportation to medical appointments?: No Do you have trouble paying your heating and electricity bill?: No Do you have trouble taking care of your child, family member or friend?: No Do you have trouble with day-to-day activities such as bathing, preparing meals, shopping, managing finances, etc.?: No Are you currently unemployed and looking for a job?: No Are you interested in more education?: No Please select the resources that you would like help with: None Currently or been in a relationship where the following occur: No concerns reported THRIVE Score: 0 AUDIT C Alcohol Use Questionnaire (AUDIT-C) 1. How often do you have a drink containing alcohol?: 2-4 times a month 2. How many drinks containing alcohol do you have on a typical day when you are drinking?: 3 or 4 3. How often do you have six or more drinks on one occasion?: Less than monthly Total Score: 4 Score Reviewed/Action Taken: Yes MADYSON-7 AMB Questionnaire MADYSON-7 Date MADYSON - 7 assessed: 11/03/24 Feeling nervous, anxious, or on edge: 1 = Several days Not being able to stop or control worryin = Not at all Worrying too much about different things: 0 = Not at all Trouble relaxin = Not at all Being so restless that it is hard to sit still: 0 = Not at all Becoming easily annoyed or irritable: 0 = Not at all Feeling afraid as if something awful might happen: 0 = Not at all Total MADYSON-7 score (0-4 normal; 5-9 mild; 10-14 moderate; 15-21 severe): 1 Source: Developed by Drs. Handy Sherman, Alix Madrid, Bethel Nichols and colleagues, with an educational juan manuel from [employer]. MADYSON-7 Assessment Billing MADYSON-7 Assessment Tool: MADYSON-7 Assessment 90460 Review of Systems Const Denies chills, Denies fatigue, Denies fever(s), Denies headache(s) and Denies weakness ENT Denies dizziness and Denies headache(s) Card Denies chest pain, Denies lightheadedness, Denies dyspnea and Denies other (Palpitations) Resp Denies cough, Denies dyspnea, Denies wheezing and Denies other ( shortness of breath) Musc Details: Pain?at?left?midback?near?left?scapula Denies numbness and Denies tingling Neuro Denies dizziness, Denies headache(s), Denies numbness, Denies tingling, Denies paresthesias and Denies weakness Psych Denies anxiety and Denies depression Endo Denies fatigue Aller/Immun Denies wheezing Physical exam (Primary Care) Vital Signs: Last Vital Signs Temp 98.9 F 11/03/24 14:40 Pulse 84 11/03/24 14:40 Resp 14 11/03/24 14:40 BP 110/70 11/03/24 14:40 Pulse Ox 98 11/03/24 14:40 Oxygen Delivery Method Room Air 11/03/24 14:40 BMI result Body Mass Index 31.0 Tobacco/Smoking Status: Tobacco use Status Tobacco use date assessed 12/05/23 11/03/24 14:31 Patient Tobacco Use Status Never used Tobacco 11/03/24 14:31 Tobacco use type 12/05/23 10:39 e-Cigarette/Vaping Use Never Used 11/03/24 14:31 PHQ-9: PHQ-9 Score PHQ-9: Total score 0 11/03/24 14:44 Depression Screening Interpretation: Negative Thrive Assessment: Date of Thrive Assessment Date Thrive assessed 11/03/24 11/03/24 14:31 Currently or been in a relationship where the following occur: No concerns reported Const General: no acute distress and well developed Nutritional Appearance: well nourished Orientation/consciousness: patient oriented x3 HENMT Head: Yes normocephalic and Yes atraumatic Eyes General: appearance normal, both eyes and all related structures Pupils: Equal, round and reactive pupils present EOM: EOMs intact bilaterally Resp Effort & Inspection: normal respiratory effort Auscultation: clear to auscultation bilaterally Cardio Rate: regular rate Rhythm: regular rhythm Heart sounds: S1 normal heart sound present, S2 normal heart sound present, no gallops, no murmurs and no rubs Back/Spine/Pelvis Other: Tenderness?at?left?subscapularis?muscle Neuro General: patient oriented x3 and gait normal Cranial nerves: Yes Equal, round and reactive pupils present Psych Affect: normal affect Coding Level of Care Code Est Pt Level 3 (65445) Diagnoses Hyperlipidemia E78.5 Elevated liver enzymes R74.8 Strain of left subscapularis muscle S46.812A Additional Codes MADYSON-7 Assessment Billing - MADYSON-7 Assessment Tool: MADYSON-7 Assessment 89675 ([id number]) PHQ-9 - 92332 - PHQ-9 Billing: Yes ([id number]) Assessment & Plan Assessment & Plan (1) Hyperlipidemia: Code(s): E78.5 - Hyperlipidemia, unspecified Category: Medical Plan: LDL?cholesterol?is?still?too?high We?briefly?discussed?medication?but?patient?does?not?want?to?start?one He?will?work?harder?on?a?diet?low?in?saturated?fats?and?cholesterol Work?on?exercise?and?weight?loss Will?recheck?in?3?months (2) Elevated liver enzymes: Code(s): R74.8 - Abnormal levels of other serum enzymes Category: Medical Plan: Mildly?elevated?liver?enzyme Will?recheck?with?next?blood?draw (3) Strain of left subscapularis muscle: Code(s): S46.812A - Strain of other muscles, fascia and tendons at shoulder and upper arm level, left arm, initial encounter Category: Medical Plan: Strain?of?left?subscapularis?muscle Start?physical?therapy Orders: Orders HIV Ab/Ag Today Z11.3 - Encounter for screening for infections with a predominantly sexual mode of transmission Syphilis Screen Today Z11.3 - Encounter for screening for infections with a predominantly sexual mode of transmission Comprehensive Hegins. Panel Fast 2 Months Z00.00 - Encounter for general adult medical examination without abnormal findings Lipid Panel 2 Months Z00.00 - Encounter for general adult medical examination without abnormal findings CT NG by PCR Today Z11.3 - Encounter for screening for infections with a predominantly sexual mode of transmission Hepatitis B,C Profile Today Z11.3 - Encounter for screening for infections with a predominantly sexual mode of transmission PT Evaluation and Treatment Today S46.812A - Strain of other muscles, fascia and tendons at shoulder and upper arm level, left arm, initial encounter
[2024-11-03 14:40] VITALS: BP 110/70; PULSE 84; RESP 14; TEMP 37.2; O2SAT 98; BMI 31.0
--- OUTSIDE RECORDS SUMMARY | 2024-11-03 17:10 | XMS_ITS | Patient Health Record ---
Author Organization Abelardo Malik MD P ediatrics [facility] Address [address] [place] [address] [phone] Care Team Providers Care Manufacture Specialist Name Role Phone ABELARDO MALIK Primary Care Provider [phone] Allergies Allergen (clinical drug ingredient) Drug/Non Drug Allergy documented on EMR Reaction Allergy Type Onset Date Status amoxicillin / clavulanate Augmentin Unknown Drug Allergy Active Reason For Referral No Information Medications Medication SIG (Take, Route, Fr equency, Duration) Notes Start Date End Date Status Ondansetron 4 MG TAKE 1 TABLET BY ALY TH EVERY 8 HOURS (06,14,22) NEEDED FOR 5 DAYS Oral for 5 Active Immunizations Vaccine Route Administration Date Status Comme nts XXX Influenza (split), 3 yrs and above IM Intramuscular 06/16/2015 Administered xxPneumococcal conjugate PCV 7 Unknown 03/28/2000 Administered xxPneumococcal conjugate PCV 7 Unknown 06/30/2000 Administered xxPneumococcal conjugate PCV 7 Unknown 10/01/2000 Administered XInfluenza, Flulaval Quadrivalent IM Intramuscular 06/13/2017 Administered XInfluenza, Flulaval Quadrivalent IM Intramuscular 06/26/2018 Administered Varicella Unknown 03/28/2000 Administered Varicella Unknown 06/27/2010 Administered Tdap Unknown 07/04/2011 Administered MMR Unknown 06/30/2000 Administered MMR Unknown 03/07/2004 Administered Meningococcal MCV4O (CVX 136) Unknown 07/04/2011 Administered Meningococcal MCV4O (CVX 136) Unknown 08/02/2014 Administered Meningitis B 2 Dose IM Intramuscular 09/29/2018 Administer ed Meningitis B 2 Dose Unknown 04/02/2019 Administered IPV Unknown 1999 Administered IPV Unknown 1999 Administered IPV Unknown 10/01/2000 Administered IPV Unknown 03/07/2004 Administered HPV Unknown 07/26/2013 Administered HPV Unknown 09/24/2013 Administered HPV Unknown 03/29/2014 Administered Hib 4 dose schedule Unknown 1999 Administered Hib 4 dose schedule Unknown 1999 Administered Hib 4 dose schedule Unknown 1999 Administered Hib 4 dose schedule Unknown 06/30/2000 Administered Hep B, adolescent or pediatric (11-19), 3 dose schedule Unknown 1999 Administered Hep B, adolescent or pediatric (11-19), 3 dose schedule Unknown 1999 Administered Hep B, adolescent or pediatric (11-19), 3 dose schedule Unknown 03/28/2000 Administered DTaP Unknown 1999 Administered DTaP Unknown 1999 Administered DTaP Unknown 1999 Administered DTaP Unknown 10/01/2000 Administered DTaP Unknown 03/07/2004 Administered Covid 19 Pfizer 12+ Unknown 11/04/2020 Administered Covid 19 Pfizer 12+ Unknown 11/25/2020 Administered XXX Influenza (split), 3 yrs and above IM Intramuscular 06/11/2016 Administered Td (adult) preservative free IM Intramuscular 09/26/2017 Administered Social History Tobacco Use: Social History Observation Description Date Details (start date - stop date) Never Smoker NA - NA Tobacco Use/Smoking Question Answer Notes Are you a nonsmoker Alcohol Screen (Audit-C) Question Answer Notes Did you have a drink contain ing alcohol in the past year? Yes How often did you have a dri nk containing alcohol in the past year? 2 to 4 times a month (2 points) How many drinks did you have on a typical day when you were drinking in the past year? 3 or 4 drinks (1 point) How often did you have 6 or more drinks on one occasion in the past year? Less than monthly (1 point) Points 4 Interpretation Positive Sexual History Question Answer Notes Had sex in the past 12 months (vaginal, oral, or anal)? Yes with Women only Use protection? Yes How often? All of the time Prevention strategies discussed: Other Have you ever had a Sexually transmitted disease ? 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 mutation ([id number]) Prothrombin gene mutation (D68.52) Active confirmed Problem Attention deficit hyperactivity disorder (671848105) Attention-deficit hyperactivity disorder, unspecified type (F90.9) Active confirmed Plan Of Treatment Pending Test Test Name Order Date Urinalysis, Routine 09/20/2015 Urinalysis 09/20/2015 Urinalysis 09/24/2016 Urinalysis 09/26/2017 TITMUS 09/24/2016 TITMUS 08/08/2022 DEVELOPMENTAL TESTING (NO FINDING) 08/08 DEVELOPMENTAL TESTING (NO FINDING) 09/29 DEVELOPMENTAL TESTING (NO FINDING) 10/19 DEVELOPMENTAL TESTING (NO FINDING) 09/26 PHQ-9 09/29/2018 PHQ-9 09/26/2017 PHQ-9 10/20/2019 PHQ-9 08/08/2022 Complete Blood Count W/ Diff 08/29/2022 Complete Blood Count W/ Diff 09/09/2022 Liver Function Panel 09/09/2022 Liver Function Panel 08/29/2022 XR thoracic spine 2/3V 11/29/2020 Insurance Providers Payer Name Payer Address Payer Phone Subscriber Number Group Number Insured Name Patient Relationship to Insured Coverage Start Date Coverage End Date [employer] [place] and [employer] [facility] [address] [place] [address] [id number] Abdias Ko Self - patient is the insured 5 Medical (General) History Medical History History ICD Code factor V Leiden, heterozygote, tested +2 006 adhd Surgical History Surgery Date(Month/Year) wisdom teeth Hospitalization History Reason Date(Month/Year) concussion
== END 2024-11-03 15:01 | disposition home or self-care (01) ==
LOC: HO.HMCFM 14:22
PROVIDERS: PCP Family Medicine; Visit Provider Family Medicine
DX: E78.5 Hyperlipidemia, unspecified (principal); R74.8 Abnormal levels of other serum enzymes; S46.812A Strain of other muscles, fascia and tendons at shoulder and upper arm level, left arm, initial encounter

== ENCOUNTER → 2024-11-03 14:22 | Outpatient (BNVA) | payer BC, SELFPAY | PROVIDERS: PCP Family Medicine; Visit Provider Family Medicine | DX: E78.5 Hyperlipidemia, unspecified (principal); R74.8 Abnormal levels of other serum enzymes; S46.812A Strain of other muscles, fascia and tendons at shoulder and upper arm level, left arm, initial encounter; X58.XXXA Exposure to other specified factors, initial encounter; Y93.9 Activity, unspecified; Y92.9 Unspecified place or not applicable; Y99.9 Unspecified external cause status | CPT/HCPCS: 96127 ==

== ENCOUNTER 2024-11-03 15:08 | Outpatient (REF) | payer BC, SELFPAY ==
[2024-11-04 08:14] LABS: Syphilis Screen Nonreactive (Nonreactive)
[2024-11-04 08:44] LABS: HBS Num1 2.91 mIU/mL (0-7.99); HBsAGNum1 0.32 S/CO (0.00-0.99); HIV AB/AG Nonreactive (Nonreactive); HIV Num 1 0.09 S/CO (0.00-0.99); Hepatitis B Core Antibody Nonreactive (Nonreactive); Hepatitis B Surface Antigen Negative (Negative); ~HepC Num1 0.25 S/CO (0.00-0.79); ~Hepatitis B Surface Antibody NONREACTIVE (Nonreactive); ~Hepatitis C Antibody Nonreactive (Nonreactive)
== END 2024-11-03 15:09 | disposition home or self-care (01) ==
LOC: HO.WFDLDS 15:08
PROVIDERS: Visit Provider Family Medicine
DX: Z11.3 Encounter for screening for infections with a predominantly sexual mode of transmission (principal)
CPT/HCPCS: 36415; 86704; 86706; 86780; 86803; 87340; 87389

== ENCOUNTER 2025-04-21 07:28 | Outpatient (REF) | payer SELFPAY ==
--- OUTSIDE RECORDS SUMMARY | 2025-04-21 07:33 | XMS_ITS | Patient Health Record ---
Author Organization Abelardo Malik MD P ediatric[facility] Address [address] [place] [address] [phone] Care Team Providers Care Director Web Name Role Phone ABELARDO MALIK Primary Care Provider [phone] Allergies Allergen (clinical drug ingredient) Drug/Non Drug Allergy documented on EMR Reaction Allergy Type Onset Date Status amoxicillin / clavulanate Augmentin Unknown Drug Allergy Active Reason For Referral No Information Medications Medication SIG (Take, Route, Fr equency, Duration) Notes Start Date End Date Status Ondansetron 4 MG TAKE 1 TABLET BY ALY TH EVERY 8 HOURS (06,14,22) NEEDED FOR 5 DAYS Oral; Duration: 5 Active Immunizations Vaccine Route Administration Date Status Comme nts XInfluenza, Flulaval Quadrivalent IM Intramuscular 06/26/2018 Administered Meningitis B 2 Dose Unknown 04/02/2019 Administered HPV Unknown 07/26/2013 Administered HPV Unknown 09/24/2013 Administered HPV Unknown 03/29/2014 Administered XXX Influenza (split), 3 yrs and above IM Intramuscular 06/16/2015 Administered XXX Influenza (split), 3 yrs and above IM Intramuscular 06/11/2016 Administered xxPneumococcal conjugate PCV 7 Unknown 03/28/2000 Administered xxPneumococcal conjugate PCV 7 Unknown 06/30/2000 Administered xxPneumococcal conjugate PCV 7 Unknown 10/01/2000 Administered XInfluenza, Flulaval Quadrivalent IM Intramuscular 06/13/2017 Administered Varicella Unknown 03/28/2000 Administered Varicella Unknown 06/27/2010 Administered Tdap Unknown 07/04/2011 Administered MMR Unknown 06/30/2000 Administered MMR Unknown 03/07/2004 Administered Meningococcal MCV4O (CVX 136) Unknown 07/04/2011 Administered Meningococcal MCV4O (CVX 136) Unknown 08/02/2014 Administered Meningitis B 2 Dose IM Intramuscular 09/29/2018 Administer ed IPV Unknown 1999 Administered IPV Unknown 1999 Administered IPV Unknown 10/01/2000 Administered IPV Unknown 03/07/2004 Administered Hib 4 dose schedule Unknown 1999 [...] Covid 19 Pfizer 12+ Unknown 11/25/2020 Administered Td (adult) preservative free IM Intramuscular [...] Status W/U Status Risk Notes Problem Prothrombin [id number] mutation ([id number]) Prothrombin gene mutation (D68.52) Active confirmed Problem Attention deficit hyperactivity disorder (066018441) Attention-deficit hyperactivity disorder, unspecified type (F90.9) Active confirmed Plan Of Treatment Pending Test Test Name Order Date Urinalysis, Routine 09/20/2015 Urinalysis 09/20/2015 Urinalysis 09/24/2016 Urinalysis 09/26/2017 TITMUS 09/24/2016 TITMUS 08/08/2022 DEVELOPMENTAL TESTING (NO FINDING) 08/08 DEVELOPMENTAL TESTING (NO FINDING) 09/29 DEVELOPMENTAL TESTING (NO FINDING) 10/19 DEVELOPMENTAL TESTING (NO FINDING) 09/26 PHQ-9 09/29/2018 PHQ-9 09/26/2017 PHQ-9 10/20/2019 PHQ-9 08/08/2022 Complete Blood Count W/ Diff 09/09/2022 Complete Blood Count W/ Diff 08/29/2022 Liver Function Panel 08/29/2022 Liver Function Panel 09/09/2022 XR thoracic spine 2/3V 11/29/2020 Insurance Providers Payer Name Payer Address Payer Phone Subscriber Number Group Number Insured Name Patient Relationship to Insured Coverage Start Date Coverage End Date [facility] [address] [place] [address] [id number] Abdias Ko Self - patient is the insured 5 Medical (General) History Medical History History ICD Code factor V Leiden, heterozygote, tested +2 006 adhd Surgical History Surgery Date(Month/Year) wisdom teeth Hospitalization History Reason Date(Month/Year) concussion
[2025-04-21 12:03] LABS: Alanine Aminotransferase 19 U/L (0-40); Albumin Level 4.6 g/dL (3.5-5.0); Alkaline Phosphatase 79 U/L (39-117); Anion Gap 12 (12-20); Aspartate Amino Transferase 26 U/L (5-37); Blood Urea Nitrogen 14 mg/dL (9-16); Calcium 8.9 mg/dL (8.4-10.2); Carbon Dioxide 25 mmol/L (22-29); Chloride 107 mmol/L (96-108); Cholesterol 191 mg/dL (<200); Estimated Glomerular Filt Rate > 60; HDL Cholesterol 41 mg/dL (>40); Potassium 3.9 mmol/L (3.3-5.1); Sodium 140 mmol/L (135-145); Total Protein 7.2 g/dL (6.5-8.0); Triglycerides 90 mg/dL (<150)
[2025-04-21 12:15] LABS: HBS Num1 1.91 mIU/mL (0-7.99); HBc Num1 0.12 S/CO (0.00-0.79); HBsAGNum1 0.57 S/CO (0.00-0.99); HIV Num 1 0.04 S/CO (0.00-0.99); Hepatitis B Surface Antigen Negative (Negative); Syphilis Screen Nonreactive (Nonreactive); ~HepC Num1 0.14 S/CO (0.00-0.79); ~Hepatitis B Surface Antibody NONREACTIVE (Nonreactive); ~Hepatitis C Antibody Nonreactive (Nonreactive)
[2025-04-21 14:11] LABS: CT PCR Urine NOT DETECTED (Not Detect.); NG PCR Urine NOT DETECTED (Not Detect.)
== END 2025-04-21 07:29 | disposition home or self-care (01) ==
LOC: HO.WFDLDS 07:28
PROVIDERS: Visit Provider Family Medicine
DX: Z00.00 Encounter for general adult medical examination without abnormal findings (principal); Z11.3 Encounter for screening for infections with a predominantly sexual mode of transmission; Z11.8 Encounter for screening for other infectious and parasitic diseases; Z11.59 Encounter for screening for other viral diseases; Z11.4 Encounter for screening for human immunodeficiency virus [HIV]; Z13.6 Encounter for screening for cardiovascular disorders; Z20.2 Contact with and (suspected) exposure to infections with a predominantly sexual mode of transmission
CPT/HCPCS: 80053; 80061; 86704; 86706; 86780; 86803; 87340; 87389; 87491; 87591